=== PATIENT | male | born 1950 | race African-American/Black ===

== ENCOUNTER 2017-11-15 16:05 | Inpatient (IN) | payer MEDICARE ==
[~2017-11-15] VITALS: Ht 188 cm; Wt 109.3 kg
[2017-11-15] VITALS (36 sets, daily range): BP systolic 75–147; BP diastolic 45–78; BMI 28.4
--- NOTE | ~2017-11-15 | EC ---
PATIENT:LING FRY DATE OF SERVICE: 11/15/17 SEX: M MEDICAL RECORD: [id number] DATE OF : 50 LOCATION:D.M2 D.213 AGE OF PATIENT: 67 ADMISSION DATE: 11/15/17 REFERRING PHYSICIAN: INTERPRETING PHYSICIAN: JULIANA MATT MD ECHOCARDIOGRAM REPORT ECHO CHARGES 5 ECHO LIMITED CLINICAL DIAGNOSIS: CP ECHOCARDIOGRAPHIC MEASUREMENTS (adult normal given) AC root (d.<3.7cm) 3.7 cm LV Septum d (<1.2 cm> 1.2 cm Valve Excursion 1.5 cm LV Septum (systole) 1.7 cm Left Atria (s.<4.0cm> 3.9 cm LVPW d(<1.2cm) 1.2 cm RV (d.<2.3cm) 2.4 cm LVPW (sytole) 1.9 cm LV diastole(<5.6CM) 5.9 cm MV E-F(>70mm/sec) cm LV systole 4.3 cm LVOT Diameter 2.1 cm MV exc.(>10mm) cm Est.ejection fraction (50-75%) % Pericardial Effusion N DOPPLER: LVIT cm/sec A cm/sec E 94.0 cm/sec LA cm/sec RVSP 59.1 mmHg LVOT 73.0 cm/sec AOP1/2T m/s Asc. Ao 133 cm/sec RVOT 54.0 cm/sec RA cm/sec PA 62.0 cm/sec AV Gradient Peak 7.1 mmHg AV Mean 3.8 mmHg AV Area 1.8 cm MV Gradient Peak 5.2 mmHg MV Mean 1.5 mmHg MV Area cm COMMENTS: Stand Grinder: Alex CALIOE Die Finisher Forging: 1 Dr. Matt TAPE# PACS DATE OF SERVICE: 11/26/2017 PROCEDURE: Echocardiogram. FINDINGS: 1. Left ventricular chamber size is mildly dilated. Left ventricular systolic function is moderately reduced, overall ejection fraction 30% to 35%. 2. Left atrium, right atrium, and right ventricular chamber sizes are mildly dilated. 3. Valvular structures have normal structure and motion. ECHOCARDIOGRAM REPORT [id number] LING FRY 4. Doppler interrogation reveals moderate mitral regurgitation, moderate tricuspid regurgitation, no other valvular insufficiency or stenosis and pulmonary systolic pressure is elevated estimated at 59 mmHg. 5. No evidence of pericardial effusion or left ventricular thrombus. TRANSINT:[id number] Voice Confirmation ID: [id number] DOCUMENT ID: [id number] JULIANA MATT MD at 1324 CC: [id number] DICTATION DATE: 11/26/17 1328 [employer] MANAGER: 11/26/17 1341 ADM IN [facility] [address] [place] [address]
--- NOTE | ~2017-11-15 | CN ---
PATIENT NAME:LING FRY MEDICAL RECORD: [id number] : 50 LOCATION:DShamika D.2130 ADMIT DATE: 11/15/17 ACCOUNT: [id number] CONSULTING PHYSICIAN: JULIANA GALVEZ MD REFERRING PHYSICIAN: DIA GAUTAM MD DATE OF CONSULTATION: 11/26/2017 CARDIOLOGY CONSULTATION DIAGNOSES: 1. Hypotension. 2. Shock. 3. Pneumonia. 4. Left upper lobe mass. 5. Cardiomyopathy. 6. End-stage renal failure, on dialysis. 7. Bradycardia. 8. Hyperlipidemia. 9. Coronary artery disease. 10. Status post coronary artery bypass graft surgery. HISTORY OF PRESENT ILLNESS: This is a gentleman who presents in a shock-like state with pneumonia and left upper lobe mass. He does have a history of coronary artery disease, status post coronary bypass graft surgery a number of years ago. He has been told in the past that his heart does not work that well, also echocardiogram today shows an ejection fraction in the 30% range. He is not having any anginal symptomatology. His systolic blood pressure has been in the 80s-90s. His heart rate has been in the 40s. He is on Cordarone 200 mg every day, this is not a new medication for him, he has been on this. PHYSICAL EXAMINATION: GENERAL APPEARANCE: Well-nourished, well-developed, appears stated age. Level of distress, comfortable. PSYCHIATRIC: Mental status, alert, normal affect. Orientation, oriented to time, place and person. EYES: Lids and conjunctiva, noninjected. No discharge, no pallor. ENT: Lips, teeth, gums, normal dentition. Oropharynx, no cyanosis, no pallor. NECK: Carotid arteries, bilateral normal upstroke, no bruits, no thrills. JUGULAR VEINS: No jugular venous pressure or distention. CERVICAL LYMPH NODES: Nontender, nonenlarged. THYROID: Not enlarged. Nontender. No nodules. LUNGS: Respiratory effort, unlabored. CHEST: Normal curvature. No thoracic deformity. No chest wall tenderness. Percussion, resonant. Auscultation, clear. No wheezes, no rales, no rhonchi. CARDIOVASCULAR: Precordial exam, nondisplaced. No heaves or pericardial thrills. Rate and rhythm, regular. Heart sounds, normal S1, normal S2. No S3, no gallop, no rub. Systolic murmur, not heard. Diastolic murmur, not heard. EXTREMITIES: No cyanosis, no edema. Peripheral pulses, full and equal in all extremities, except as noted. No bruits appreciated. ABDOMEN: Soft, nondistended. Normal aorta. No bruit. Nontender. No masses. Liver, nontender, no hepatomegaly. Spleen, nontender, no splenomegaly. MUSCULOSKELETAL: No joint tenderness. No joint swelling. No erythema. NEUROLOGICAL: Normal gait, normal strength, normal tone. SKIN: Warm and dry. CONSULT REPORT [id number] LING FRY OVERALL IMPRESSION: At this time, he does have a cardiomyopathy. I did not think that this is new. His EKG is stable with a right bundle-branch block, but no ST-T changes. I do not think he has acute ischemic heart disease as one of his problems, cardiomyopathy is chronic, but due to the bradycardia and renal insufficiency, we would discontinue the Cordarone, we would not replace with any agent at this time unless further dysrhythmias are problem. If the bradycardia persists after discontinuation of Cordarone, at that time we would evaluate for permanent pacemaker. TRANSINT:[id number] Voice Confirmation ID: [id number] DOCUMENT ID: [id number] JULIANA GALVEZ MD at 1324 CC: [id number] DICTATION DATE: 11/26/17 1608 [employer] DRIVER: 11/26/17 1643 ADM IN [facility] [address] [place] [address]
[2017-11-15 17:21] LABS: BASOPHILS 0 % (0-2); EOSINOPHILS 0 % (0-7); HEMATOCRIT 33.4 % (42.0-54.0); HEMOGLOBIN 9.7 g/dL (13.5-17.5); IMMATURE GRANULOCYTES 0.2 % (0-5); LYMPHOCYTES 4.3 % (15-50); MCH 28.2 pg (26.0-34.0); MCV 97.1 fL (80.0-100.0); MEAN PLATELET VOLUME 10.6 fL (7.4-10.4); MONOCYTES 8.6 % (2-11); NEUTROPHILS 86.9 % (40-80); PLATELET COUNT 230 10x3/uL (130-400); RBC 3.44 10x6/uL (4.20-6.10); RDW 17.4 % (11.5-14.5); WBC 11.5 10x3/uL (4.8-10.8)
[2017-11-15 17:52] LABS: ALBUMIN 2.6 g/dL (3.4-5.0); ANION GAP 16.3 mmol/L (8-16); BILIRUBIN - TOTAL 0.45 mg/dL (0.2-1.3); CARBON DIOXIDE 24.9 mmol/L (21.0-32.0); CREATININE - SERUM 4.6 mg/dL (0.6-1.3); POTASSIUM - SERUM 3.2 mmol/L (3.5-5.1); PROTEIN - SERUM 7.1 g/dL (6.4-8.2)
[2017-11-15] MEDS ORDERED: PACERONE200 MG PO (18:09)
[2017-11-15] MEDS ORDERED: ASPIRIN325 MG PO (18:09)
[2017-11-15] MEDS ORDERED: ACETAMINOPHEN500 M1 PO (18:09)
[2017-11-15] MEDS ORDERED: ALBUTEROL0.63 MG/3 INH (18:09)
[2017-11-15] MEDS ORDERED: OS-CAL500 MG PO (18:10)
[2017-11-15] MEDS ORDERED: FLOMAX0.4 MG PO (18:11)
[2017-11-15] MEDS ORDERED: FUROSEMIDE40 MG PO (18:17)
[2017-11-15] MEDS ORDERED: GABAPENTIN100 MG PO (18:17)
[2017-11-15] MEDS ORDERED: NORCO 7.5/325 T1 TA1 PO (18:18)
[2017-11-15] MEDS ORDERED: LOMOTIL TABLET1 TAB PO (18:19)
[2017-11-15] MEDS ORDERED: NITROSTAT0.4 MG SL (18:19)
[2017-11-15] MEDS ORDERED: PLAVIX75 MG PO (18:20)
[2017-11-15] MEDS ORDERED: NOVOLOG100 U/M1 SC (18:20)
[2017-11-15] MEDS ORDERED: PREDNISONE20 MG PO (18:21)
[2017-11-15] MEDS ORDERED: COMPAZINE10 MG PO (18:22)
[2017-11-15] MEDS ORDERED: CRESTOR20 MG PO (18:23)
[2017-11-15] MEDS ORDERED: RENVELA800 MG PO (18:23)
[2017-11-15] MEDS ORDERED: ULTRAM50 MG PO (18:24)
[2017-11-15] MEDS ORDERED: ZINC-220220 MG PO (18:24)
[2017-11-15] MEDS ORDERED: ASCORBIC ACID500 MG PO (18:24)
[2017-11-16] VITALS (87 sets, daily range): BP systolic 77–161; BP diastolic 43–99; Ht 188 cm; Wt 109.3 kg
[2017-11-16 04:30] LABS: BASOPHILS 0.1 % (0-2); EOSINOPHILS 0 % (0-7); HEMATOCRIT 33.1 % (42.0-54.0); HEMOGLOBIN 9.7 g/dL (13.5-17.5); IMMATURE GRANULOCYTES 0.2 % (0-5); LYMPHOCYTES 5.9 % (15-50); MCH 28.5 pg (26.0-34.0); MCHC 29.3 g/dL (31.0-37.0); MCV 97.4 fL (80.0-100.0); MEAN PLATELET VOLUME 10.7 fL (7.4-10.4); MONOCYTES 9.7 % (2-11); NEUTROPHILS 84.1 % (40-80); PLATELET COUNT 259 10x3/uL (130-400); RDW 17.3 % (11.5-14.5); WBC 11.6 10x3/uL (4.8-10.8)
[2017-11-16 05:01] LABS: ALBUMIN 2.5 g/dL (3.4-5.0); ANION GAP 19.8 mmol/L (8-16); CALCIUM 7.9 mg/dL (8.5-10.1); CARBON DIOXIDE 24.1 mmol/L (21.0-32.0); CREATININE - SERUM 4.8 mg/dL (0.6-1.3); GENTAMICIN - RANDOM 3.4 ug/mL (0.5-2.0); PHOSPHOROUS 6.3 mg/dL (2.5-4.9); VANCOMYCIN - RANDOM 15.2 ug/mL (10.0-20.0)
[2017-11-16 05:05] LABS: POTASSIUM - SERUM 3.9 mmol/L (3.5-5.1)
[2017-11-17] VITALS (87 sets, daily range): BP systolic 73–200; BP diastolic 44–99
[2017-11-17 04:34] LABS: BASOPHILS 0.1 % (0-2); EOSINOPHILS 0.2 % (0-7); HEMATOCRIT 31.9 % (42.0-54.0); HEMOGLOBIN 9.5 g/dL (13.5-17.5); IMMATURE GRANULOCYTES 0.3 % (0-5); LYMPHOCYTES 8.4 % (15-50); MCH 28.4 pg (26.0-34.0); MCHC 29.8 g/dL (31.0-37.0); MEAN PLATELET VOLUME 10.7 fL (7.4-10.4); MONOCYTES 10.4 % (2-11); NEUTROPHILS 80.6 % (40-80); PLATELET COUNT 209 10x3/uL (130-400); RBC 3.35 10x6/uL (4.20-6.10); RDW 17.4 % (11.5-14.5); WBC 10.5 10x3/uL (4.8-10.8)
[2017-11-17 04:41] LABS: MCV 95.2 fL (80.0-100.0)
[2017-11-17 05:23] LABS: ALBUMIN 2.3 g/dL (3.4-5.0); ANION GAP 14.1 mmol/L (8-16); BILIRUBIN - TOTAL 0.4 mg/dL (0.2-1.3); CALCIUM 7.7 mg/dL (8.5-10.1); CARBON DIOXIDE 27.9 mmol/L (21.0-32.0); CREATININE - SERUM 4.1 mg/dL (0.6-1.3); PROTEIN - SERUM 6.9 g/dL (6.4-8.2)
[2017-11-17 05:37] LABS: MAGNESIUM - SERUM 1.8 mg/dL (1.8-2.4); THYROID STIMULATING HORMONE 1.27 uIU/mL (0.36-3.74)
[2017-11-17 05:38] LABS: PHOSPHOROUS 4.2 mg/dL (2.5-4.9)
[2017-11-17 05:39] LABS: TROPONIN-I 0.102 ng/mL (0.000-0.060)
[2017-11-18] VITALS (37 sets, daily range): BP systolic 85–121; BP diastolic 46–74
[2017-11-18 06:47] LABS: BASOPHILS 0.1 % (0-2); HEMATOCRIT 28.5 % (42.0-54.0); HEMOGLOBIN 8.6 g/dL (13.5-17.5); IMMATURE GRANULOCYTES 0.1 % (0-5); LYMPHOCYTES 22.4 % (15-50); MCH 28.7 pg (26.0-34.0); MCHC 30.2 g/dL (31.0-37.0); MEAN PLATELET VOLUME 10.7 fL (7.4-10.4); MONOCYTES 14.3 % (2-11); NEUTROPHILS 61.1 % (40-80); RDW 17.3 % (11.5-14.5)
[2017-11-18 06:53] LABS: PLATELET COUNT 156 10x3/uL (130-400); WBC 7.4 10x3/uL (4.8-10.8)
[2017-11-18 07:05] LABS: ALBUMIN 2.2 g/dL (3.4-5.0); ANION GAP 14.7 mmol/L (8-16); BILIRUBIN - TOTAL 0.38 mg/dL (0.2-1.3); CALCIUM 7.6 mg/dL (8.5-10.1); CARBON DIOXIDE 26.8 mmol/L (21.0-32.0); CREATININE - SERUM 4.8 mg/dL (0.6-1.3); MAGNESIUM - SERUM 1.9 mg/dL (1.8-2.4); PHOSPHOROUS 4.9 mg/dL (2.5-4.9); POTASSIUM - SERUM 3.5 mmol/L (3.5-5.1); PROTEIN - SERUM 5.7 g/dL (6.4-8.2)
[2017-11-19 04:00] VITALS: BP 92/51
[2017-11-19 06:13] LABS: BASOPHILS 0.3 % (0-2); EOSINOPHILS 3.6 % (0-7); HEMATOCRIT 30.5 % (42.0-54.0); HEMOGLOBIN 8.9 g/dL (13.5-17.5); IMMATURE GRANULOCYTES 0.2 % (0-5); LYMPHOCYTES 22.1 % (15-50); MCH 28.1 pg (26.0-34.0); MCHC 29.2 g/dL (31.0-37.0); MCV 96.2 fL (80.0-100.0); MEAN PLATELET VOLUME 10.6 fL (7.4-10.4); MONOCYTES 14.1 % (2-11); NEUTROPHILS 59.7 % (40-80); PLATELET COUNT 154 10x3/uL (130-400); RBC 3.17 10x6/uL (4.20-6.10); RDW 17.2 % (11.5-14.5); WBC 5.9 10x3/uL (4.8-10.8)
[2017-11-19 06:36] LABS: ALBUMIN 2.1 g/dL (3.4-5.0); ANION GAP 13.1 mmol/L (8-16); BILIRUBIN - TOTAL 0.48 mg/dL (0.2-1.3); CALCIUM 8.2 mg/dL (8.5-10.1); CARBON DIOXIDE 27.3 mmol/L (21.0-32.0); CREATININE - SERUM 3.9 mg/dL (0.6-1.3); PHOSPHOROUS 4.4 mg/dL (2.5-4.9); POTASSIUM - SERUM 3.4 mmol/L (3.5-5.1); PROTEIN - SERUM 6.3 g/dL (6.4-8.2); VANCOMYCIN - RANDOM 18.8 ug/mL (10.0-20.0)
[2017-11-19 08:40] VITALS: BP 112/59
[2017-11-19 12:30] VITALS: BP 94/52
[2017-11-19 16:45] VITALS: BP 96/49
[2017-11-19 20:00] VITALS: BP 104/66
[2017-11-20 04:00] VITALS: BP 91/50
[2017-11-20 05:48] LABS: BASOPHILS 0.2 % (0-2); EOSINOPHILS 6.5 % (0-7); HEMOGLOBIN 8.6 g/dL (13.5-17.5); IMMATURE GRANULOCYTES 0.3 % (0-5); LYMPHOCYTES 29.6 % (15-50); MCH 28.2 pg (26.0-34.0); MCHC 29.7 g/dL (31.0-37.0); MCV 95.1 fL (80.0-100.0); MEAN PLATELET VOLUME 11.2 fL (7.4-10.4); NEUTROPHILS 51.4 % (40-80); PLATELET COUNT 162 10x3/uL (130-400); RBC 3.05 10x6/uL (4.20-6.10); RDW 17.1 % (11.5-14.5)
[2017-11-20 06:04] LABS: ANION GAP 12.3 mmol/L (8-16); CARBON DIOXIDE 27.3 mmol/L (21.0-32.0); CREATININE - SERUM 4.6 mg/dL (0.6-1.3); POTASSIUM - SERUM 3.6 mmol/L (3.5-5.1)
[2017-11-20 08:49] VITALS: BP 105/56
[2017-11-20 12:36] VITALS: BP 91/33
[2017-11-20 16:36] VITALS: BP 109/61
[2017-11-20 20:00] VITALS: BP 105/52
[2017-11-21] VITALS: BP 114/60
[2017-11-21 08:15] VITALS: BP 92/50
[2017-11-21 08:38] LABS: BASOPHILS 0.2 % (0-2); EOSINOPHILS 6.7 % (0-7); HEMATOCRIT 29.6 % (42.0-54.0); HEMOGLOBIN 8.8 g/dL (13.5-17.5); IMMATURE GRANULOCYTES 0.2 % (0-5); LYMPHOCYTES 29.8 % (15-50); MCH 28.1 pg (26.0-34.0); MCHC 29.7 g/dL (31.0-37.0); MCV 94.6 fL (80.0-100.0); MEAN PLATELET VOLUME 11.2 fL (7.4-10.4); MONOCYTES 13.5 % (2-11); NEUTROPHILS 49.6 % (40-80); RBC 3.13 10x6/uL (4.20-6.10); RDW 16.8 % (11.5-14.5); WBC 4.6 10x3/uL (4.8-10.8)
[2017-11-21 08:39] LABS: PLATELET COUNT 127 10x3/uL (130-400)
[2017-11-21 08:58] LABS: ANION GAP 12.1 mmol/L (8-16); BILIRUBIN - TOTAL 0.6 mg/dL (0.2-1.3); CALCIUM 8.2 mg/dL (8.5-10.1); CARBON DIOXIDE 26.5 mmol/L (21.0-32.0); CREATININE - SERUM 4.3 mg/dL (0.6-1.3); MAGNESIUM - SERUM 1.9 mg/dL (1.8-2.4); PHOSPHOROUS 4.6 mg/dL (2.5-4.9); POTASSIUM - SERUM 3.6 mmol/L (3.5-5.1); PROTEIN - SERUM 6.1 g/dL (6.4-8.2)
[2017-11-21 11:59] VITALS: BP 99/51
[2017-11-21 16:12] VITALS: BP 87/39
[2017-11-21 20:00] VITALS: BP 85/47
[2017-11-22] VITALS (10 sets, daily range): BP systolic 80–135; BP diastolic 42–56
[2017-11-22 07:31] LABS: BASOPHILS 0.4 % (0-2); HEMATOCRIT 31.1 % (42.0-54.0); LYMPHOCYTES 31.3 % (15-50); MCH 27.4 pg (26.0-34.0); MCHC 28.9 g/dL (31.0-37.0); MCV 94.8 fL (80.0-100.0); MEAN PLATELET VOLUME 11.8 fL (7.4-10.4); MONOCYTES 13.5 % (2-11); NEUTROPHILS 48.8 % (40-80); PLATELET COUNT 133 10x3/uL (130-400); RBC 3.28 10x6/uL (4.20-6.10); RDW 16.8 % (11.5-14.5); WBC 4.7 10x3/uL (4.8-10.8)
[2017-11-22 08:19] LABS: APTT 35.5 SECONDS (22.8-39.4); INR 1.23 (0.85-1.17)
[2017-11-23 04:52] LABS: BASOPHILS 0.2 % (0-2); EOSINOPHILS 3.5 % (0-7); HEMATOCRIT 30.5 % (42.0-54.0); HEMOGLOBIN 9.1 g/dL (13.5-17.5); IMMATURE GRANULOCYTES 0.2 % (0-5); LYMPHOCYTES 24.2 % (15-50); MCH 27.9 pg (26.0-34.0); MCHC 29.8 g/dL (31.0-37.0); MCV 93.6 fL (80.0-100.0); MEAN PLATELET VOLUME 11.2 fL (7.4-10.4); MONOCYTES 13.1 % (2-11); NEUTROPHILS 58.8 % (40-80); PLATELET COUNT 128 10x3/uL (130-400); RBC 3.26 10x6/uL (4.20-6.10); RDW 16.4 % (11.5-14.5); WBC 5.2 10x3/uL (4.8-10.8)
[2017-11-23 05:46] LABS: ANION GAP 17.4 mmol/L (8-16); CALCIUM 7.9 mg/dL (8.5-10.1); CREATININE - SERUM 5.5 mg/dL (0.6-1.3); POTASSIUM - SERUM 4.4 mmol/L (3.5-5.1)
[2017-11-23 08:07] VITALS: BP 89/51
[2017-11-23 11:46] VITALS: BP 167/77
[2017-11-23 16:04] VITALS: BP 117/54
[2017-11-23 20:00] VITALS: BP 124/56
[2017-11-24 04:00] VITALS: BP 150/60
[2017-11-24 05:23] LABS: BASOPHILS 0.2 % (0-2); EOSINOPHILS 3.6 % (0-7); HEMATOCRIT 30.9 % (42.0-54.0); HEMOGLOBIN 9.2 g/dL (13.5-17.5); IMMATURE GRANULOCYTES 0.2 % (0-5); LYMPHOCYTES 22.5 % (15-50); MCHC 29.8 g/dL (31.0-37.0); MCV 94.2 fL (80.0-100.0); MEAN PLATELET VOLUME 12.2 fL (7.4-10.4); MONOCYTES 15.2 % (2-11); NEUTROPHILS 58.3 % (40-80); PLATELET COUNT 135 10x3/uL (130-400); RBC 3.28 10x6/uL (4.20-6.10); RDW 16.2 % (11.5-14.5); WBC 4.9 10x3/uL (4.8-10.8)
[2017-11-24 05:42] LABS: INR 1.31 (0.85-1.17); PROTIME 15.8 SECONDS (11.6-15.0)
[2017-11-24 05:43] LABS: APTT 37.9 SECONDS (22.8-39.4)
[2017-11-24 05:44] LABS: CALCIUM 8.3 mg/dL (8.5-10.1); CARBON DIOXIDE 27.6 mmol/L (21.0-32.0); CREATININE - SERUM 4.3 mg/dL (0.6-1.3)
[2017-11-24 05:59] LABS: POTASSIUM - SERUM 3.6 mmol/L (3.5-5.1)
[2017-11-24 08:16] VITALS: BP 111/54
[2017-11-24 12:45] VITALS: BP 97/49
[2017-11-24 16:45] VITALS: BP 93/44
[2017-11-24 20:00] VITALS: BP 83/45
[2017-11-25] VITALS (21 sets, daily range): BP systolic 83–136; BP diastolic 46–67
[2017-11-25 05:12] LABS: BASOPHILS 0.4 % (0-2); EOSINOPHILS 1.7 % (0-7); HEMATOCRIT 32.2 % (42.0-54.0); HEMOGLOBIN 9.4 g/dL (13.5-17.5); IMMATURE GRANULOCYTES 0.2 % (0-5); LYMPHOCYTES 14.5 % (15-50); MCH 28.1 pg (26.0-34.0); MCHC 29.2 g/dL (31.0-37.0); MCV 96.1 fL (80.0-100.0); MONOCYTES 13.2 % (2-11); PLATELET COUNT 136 10x3/uL (130-400); RBC 3.35 10x6/uL (4.20-6.10); RDW 16.3 % (11.5-14.5); WBC 5.5 10x3/uL (4.8-10.8)
[2017-11-25 05:43] LABS: CALCIUM 8.1 mg/dL (8.5-10.1); CARBON DIOXIDE 28.3 mmol/L (21.0-32.0); CREATININE - SERUM 5.1 mg/dL (0.6-1.3); VANCOMYCIN - RANDOM 15.7 ug/mL (10.0-20.0)
[2017-11-25 05:53] LABS: POTASSIUM - SERUM 4.3 mmol/L (3.5-5.1)
[2017-11-25 07:46] LABS: INR 1.19 (0.85-1.17); PROTIME 14.7 SECONDS (11.6-15.0)
[2017-11-26] VITALS (24 sets, daily range): BP systolic 80–141; BP diastolic 51–668
[2017-11-26 03:54] LABS: BASOPHILS 0.4 % (0-2); EOSINOPHILS 2.1 % (0-7); HEMATOCRIT 32.4 % (42.0-54.0); HEMOGLOBIN 9.2 g/dL (13.5-17.5); IMMATURE GRANULOCYTES 0.2 % (0-5); LYMPHOCYTES 27.3 % (15-50); MCH 27.1 pg (26.0-34.0); MCHC 28.4 g/dL (31.0-37.0); MCV 95.6 fL (80.0-100.0); MEAN PLATELET VOLUME 12.3 fL (7.4-10.4); MONOCYTES 15.2 % (2-11); NEUTROPHILS 54.8 % (40-80); PLATELET COUNT 136 10x3/uL (130-400); RBC 3.39 10x6/uL (4.20-6.10); RDW 16.3 % (11.5-14.5); WBC 5.2 10x3/uL (4.8-10.8)
[2017-11-26 04:12] LABS: ANION GAP 9.9 mmol/L (8-16); CALCIUM 8.1 mg/dL (8.5-10.1); CARBON DIOXIDE 32.1 mmol/L (21.0-32.0); CREATININE - SERUM 4.3 mg/dL (0.6-1.3); VANCOMYCIN - RANDOM 21.7 ug/mL (10.0-20.0)
[2017-11-27] VITALS (12 sets, daily range): BP systolic 89–144; BP diastolic 49–85
[2017-11-27 04:06] LABS: BASOPHILS 0.5 % (0-2); EOSINOPHILS 2.7 % (0-7); HEMATOCRIT 32.5 % (42.0-54.0); HEMOGLOBIN 9.3 g/dL (13.5-17.5); IMMATURE GRANULOCYTES 0.2 % (0-5); LYMPHOCYTES 31.7 % (15-50); MCH 27.3 pg (26.0-34.0); MCHC 28.6 g/dL (31.0-37.0); MCV 95.3 fL (80.0-100.0); MEAN PLATELET VOLUME 12.3 fL (7.4-10.4); MONOCYTES 12.6 % (2-11); NEUTROPHILS 52.3 % (40-80); PLATELET COUNT 153 10x3/uL (130-400); RBC 3.41 10x6/uL (4.20-6.10); RDW 16.3 % (11.5-14.5); WBC 5.9 10x3/uL (4.8-10.8)
[2017-11-27 04:14] LABS: ANION GAP 15.1 mmol/L (8-16); CALCIUM 8.3 mg/dL (8.5-10.1); CARBON DIOXIDE 26.5 mmol/L (21.0-32.0); POTASSIUM - SERUM 3.6 mmol/L (3.5-5.1)
[2017-11-28 01:16] VITALS: BP 91/47
[2017-11-28 05:14] VITALS: BP 70/53
[2017-11-28 06:11] LABS: BASOPHILS 0.2 % (0-2); EOSINOPHILS 2.7 % (0-7); HEMOGLOBIN 9.7 g/dL (13.5-17.5); IMMATURE GRANULOCYTES 0.2 % (0-5); LYMPHOCYTES 23.5 % (15-50); MCH 27.5 pg (26.0-34.0); MCHC 28.5 g/dL (31.0-37.0); MCV 96.3 fL (80.0-100.0); MEAN PLATELET VOLUME 12.5 fL (7.4-10.4); MONOCYTES 12.5 % (2-11); NEUTROPHILS 60.9 % (40-80); PLATELET COUNT 132 10x3/uL (130-400); RBC 3.53 10x6/uL (4.20-6.10); RDW 16.4 % (11.5-14.5); WBC 5.5 10x3/uL (4.8-10.8)
[2017-11-28 06:43] LABS: ANION GAP 15.2 mmol/L (8-16); CALCIUM 8.3 mg/dL (8.5-10.1); CARBON DIOXIDE 28.4 mmol/L (21.0-32.0); POTASSIUM - SERUM 3.6 mmol/L (3.5-5.1)
[2017-11-28 08:00] VITALS: BP 88/44
[2017-11-28 11:22] VITALS: BP 94/52
[2017-11-28 16:06] VITALS: BP 82/53
[2017-11-28 20:00] VITALS: BP 109/49
[2017-11-29] VITALS: BP 122/47
[2017-11-29 04:00] VITALS: BP 107/53
[2017-11-29 05:44] LABS: BASOPHILS 0.3 % (0-2); EOSINOPHILS 1.8 % (0-7); HEMATOCRIT 33.9 % (42.0-54.0); HEMOGLOBIN 9.6 g/dL (13.5-17.5); IMMATURE GRANULOCYTES 0.3 % (0-5); LYMPHOCYTES 16.1 % (15-50); MCH 27.5 pg (26.0-34.0); MCHC 28.3 g/dL (31.0-37.0); MCV 97.1 fL (80.0-100.0); MEAN PLATELET VOLUME 12.5 fL (7.4-10.4); MONOCYTES 9.5 % (2-11); PLATELET COUNT 134 10x3/uL (130-400); RBC 3.49 10x6/uL (4.20-6.10); RDW 16.4 % (11.5-14.5); WBC 7.6 10x3/uL (4.8-10.8)
[2017-11-29 05:54] LABS: ANION GAP 15.6 mmol/L (8-16); CALCIUM 8.5 mg/dL (8.5-10.1); CARBON DIOXIDE 27.1 mmol/L (21.0-32.0); CREATININE - SERUM 4.8 mg/dL (0.6-1.3); POTASSIUM - SERUM 3.7 mmol/L (3.5-5.1)
[2017-11-29 07:00] VITALS: BP 90/43
[2017-11-29 12:48] VITALS: BP 95/53
[2017-11-29 17:31] VITALS: BP 89/40
[2017-11-29 21:30] VITALS: BP 90/42
[2017-11-30] VITALS: BP 95/49
[2017-11-30 06:11] VITALS: BP 85/42
[2017-11-30 06:47] LABS: ANION GAP 16.8 mmol/L (8-16); CALCIUM 8.1 mg/dL (8.5-10.1); CARBON DIOXIDE 24.6 mmol/L (21.0-32.0); CREATININE - SERUM 5.5 mg/dL (0.6-1.3)
[2017-11-30 06:48] LABS: POTASSIUM - SERUM 4.4 mmol/L (3.5-5.1)
[2017-11-30 07:05] LABS: BASOPHILS 0.4 % (0-2); EOSINOPHILS 2.1 % (0-7); HEMOGLOBIN 9.4 g/dL (13.5-17.5); LYMPHOCYTES 16.8 % (15-50); MCH 27.3 pg (26.0-34.0); MCHC 28.5 g/dL (31.0-37.0); MCV 95.9 fL (80.0-100.0); MEAN PLATELET VOLUME 11.7 fL (7.4-10.4); MONOCYTES 10.9 % (2-11); NEUTROPHILS 69.8 % (40-80); PLATELET COUNT 130 10x3/uL (130-400); RBC 3.44 10x6/uL (4.20-6.10); RDW 16.3 % (11.5-14.5); WBC 7.8 10x3/uL (4.8-10.8)
[2017-11-30 07:59] VITALS: BP 96/50
[2017-11-30 15:12] VITALS: BP 96/50
[2017-11-30 20:00] VITALS: BP 102/52
[2017-12-01] VITALS: BP 83/40
[2017-12-01 04:00] VITALS: BP 92/47
[2017-12-01 06:20] LABS: BASOPHILS 0.2 % (0-2); EOSINOPHILS 1.1 % (0-7); HEMATOCRIT 32.3 % (42.0-54.0); HEMOGLOBIN 9.2 g/dL (13.5-17.5); IMMATURE GRANULOCYTES 0.2 % (0-5); LYMPHOCYTES 7.8 % (15-50); MCH 27.6 pg (26.0-34.0); MCHC 28.5 g/dL (31.0-37.0); MEAN PLATELET VOLUME 12.1 fL (7.4-10.4); MONOCYTES 8.1 % (2-11); NEUTROPHILS 82.6 % (40-80); PLATELET COUNT 124 10x3/uL (130-400); RBC 3.33 10x6/uL (4.20-6.10); RDW 16.3 % (11.5-14.5)
[2017-12-01 06:22] LABS: WBC 9.9 10x3/uL (4.8-10.8)
[2017-12-01 06:45] LABS: ANION GAP 13.7 mmol/L (8-16); CALCIUM 8.2 mg/dL (8.5-10.1); CARBON DIOXIDE 28.6 mmol/L (21.0-32.0); CREATININE - SERUM 4.4 mg/dL (0.6-1.3); POTASSIUM - SERUM 3.3 mmol/L (3.5-5.1)
[2017-12-01 07:39] VITALS: BP 95/51
[2017-12-01 10:48] VITALS: BP 86/41
[2017-12-01 15:21] VITALS: BP 115/57
[2017-12-01 19:00] VITALS: BP 128/53
[2017-12-02] VITALS: BP 84/51
[2017-12-02 04:00] VITALS: BP 86/48
[2017-12-02 05:39] LABS: BASOPHILS 0.2 % (0-2); EOSINOPHILS 1.1 % (0-7); HEMATOCRIT 32.6 % (42.0-54.0); HEMOGLOBIN 9.2 g/dL (13.5-17.5); IMMATURE GRANULOCYTES 0.2 % (0-5); LYMPHOCYTES 13.3 % (15-50); MCH 27.5 pg (26.0-34.0); MCHC 28.2 g/dL (31.0-37.0); MCV 97.3 fL (80.0-100.0); MEAN PLATELET VOLUME 12.2 fL (7.4-10.4); MONOCYTES 8.2 % (2-11); PLATELET COUNT 121 10x3/uL (130-400); RBC 3.35 10x6/uL (4.20-6.10); RDW 16.5 % (11.5-14.5); WBC 9.6 10x3/uL (4.8-10.8)
[2017-12-02 05:59] LABS: CALCIUM 8.2 mg/dL (8.5-10.1); CARBON DIOXIDE 27.5 mmol/L (21.0-32.0); CREATININE - SERUM 5.2 mg/dL (0.6-1.3); POTASSIUM - SERUM 3.5 mmol/L (3.5-5.1)
[2017-12-02 08:07] VITALS: BP 128/53
[2017-12-02 15:27] VITALS: BP 136/62
[2017-12-02 20:00] VITALS: BP 117/59
[2017-12-03] VITALS: BP 112/53
[2017-12-03 04:00] VITALS: BP 91/49
[2017-12-03 07:48] VITALS: BP 94/53
[2017-12-03] MEDS ORDERED: MIDODRINE HCL5 MG PO (10:40)
[2017-12-03 11:39] VITALS: BP 101/48
== END 2017-12-03 16:20 | DRG 871 ==
LOC: D.MS 16:05 → D.M2 16:05 → D.ICU 16:05 → D.MS 11-19 00:27 → D.ICU 11-25 09:14 → D.M2 11-27 13:24
PROVIDERS: Internal Medicine; Internal Medicine Nephrology; Internal Medicine Pulmonary Disease; Radiology Diagnostic Radiology; Specialist
PROC: 5A1D70Z Performance of Urinary Filtration, Intermittent, Less than 6 Hours Per Day (ICD-10-PCS; principal; 2017-11-16)
PROC: 0BBG3ZX Excision of Left Upper Lung Lobe, Percutaneous Approach, Diagnostic (ICD-10-PCS; 2017-11-22)
PROC: 0BBG3ZX Excision of Left Upper Lung Lobe, Percutaneous Approach, Diagnostic (ICD-10-PCS; 2017-11-25)
PROC: 5A1935Z Respiratory Ventilation, Less than 24 Consecutive Hours (ICD-10-PCS; 2017-11-25)
DX: A41.9 Sepsis, unspecified organism (principal); N18.6 End stage renal disease; J96.22 Acute and chronic respiratory failure with hypercapnia; J96.21 Acute and chronic respiratory failure with hypoxia; G93.41 Metabolic encephalopathy; J15.1 Pneumonia due to Pseudomonas; I12.0 Hypertensive chronic kidney disease with stage 5 chronic kidney disease or end stage renal disease; J44.1 Chronic obstructive pulmonary disease with (acute) exacerbation; J44.0 Chronic obstructive pulmonary disease with (acute) lower respiratory infection; J98.11 Atelectasis; C34.12 Malignant neoplasm of upper lobe, left bronchus or lung; I42.9 Cardiomyopathy, unspecified; E11.22 Type 2 diabetes mellitus with diabetic chronic kidney disease; E11.65 Type 2 diabetes mellitus with hyperglycemia; Z99.2 Dependence on renal dialysis; E11.40 Type 2 diabetes mellitus with diabetic neuropathy, unspecified; E11.21 Type 2 diabetes mellitus with diabetic nephropathy; I73.9 Peripheral vascular disease, unspecified; I25.10 Atherosclerotic heart disease of native coronary artery without angina pectoris; Z89.512 Acquired absence of left leg below knee; Z89.511 Acquired absence of right leg below knee; I48.91 Unspecified atrial fibrillation; N40.0 Benign prostatic hyperplasia without lower urinary tract symptoms; E78.5 Hyperlipidemia, unspecified; D64.9 Anemia, unspecified; I45.10 Unspecified right bundle-branch block